=== PATIENT | female | born 1935 | race Caucasian/White ===

== ENCOUNTER 2019-04-26 01:47 | Emergency (ER) | payer OTHER ==
[2019-04-26 02:43] VITALS: BMI 31.6
--- NOTE | 2019-04-26 03:34 | PDOC ---
History of Present Illness - General Chief Complaint: Chest Pain Stated Complaint: BUG BITE, CHEST PAIN Time Seen by Provider: 04/26/19 04:00 - History of Present Illness Initial Comments: Ms. Carson is a 83F with PMH of TIA, hypothyroidism, and GERD, presenting today for a bug bite and subsequent swelling of her right hand and forearm. She reports that she was outside on the terrace when she was bitten by an unknown insect at 6pm. Reports that the swelling has been increasing proximally up her arm. Does not report difficulty breathing or throat swelling. Denies fever. She also reports pain in her left axilla and describes it as similar in nature to her chronic muscle pains. Past History - Past Medical History Allergies/Adverse Reactions: Allergies Allergy/AdvReac Type Severity Reaction Status Date / Time ranitidine HCl [From Zantac] Allergy Unverified 04/26/19 05:28 Home Medications: Ambulatory Orders Levothyroxine [Synthroid -] 100 mcg PO DAILY 05/27/15 Amoxicillin/Potassium Clav [Augmentin 875-125 Tablet] 1 each PO BID #14 tablet 04/26/19 COPD: No GI Disorders: Yes (GERD) HTN: Yes Hypercholesterolemia: Yes Thyroid Disease: Yes (HYPO) - Surgical History Abdominal Surgery: Yes (LAPAROSCOPY) Appendectomy: Yes Neurologic Surgery: Yes (NECK FUSION) Orthopedic Surgery: Yes (WRIST SURGERY) - Suicide/Smoking/Psychosocial Hx Smoking History: Never smoked Have you smoked in the past 12 months: No Number of Cigarettes Smoked Daily: 0 If you are a former smoker, when did you quit?: 30-40 YEARS AGO Information on smoking cessation initiated: No Hx Alcohol Use: No Drug/Substance Use Hx: No Substance Use Type: None Review of Systems - Review of Systems Able to Perform ROS?: Yes Is the patient limited Lebanese proficient: No Constitutional: Yes: See HPI. No: Chills, Diaphoresis, Fever HEENTM: Yes: See HPI. No: Throat Pain, Throat Swelling, Difficulty Swallowing, Mouth Swelling Respiratory: Yes: See HPI. No: Cough, Shortness of Breath, Stridor Cardiac (ROS): Yes: See HPI. No: Chest Pain, Edema, Palpitations ABD/GI: Yes: See HPI. No: Abdominal Distended, Constipated, Diarrhea, Nausea, Vomiting Musculoskeletal: Yes: See HPI, Muscle Pain. No: Joint Pain, Muscle Weakness Integumentary: Yes: See HPI, Erythema (right hand/forearm ). No: Bruising Neurological: Yes: See HPI. No: Headache, Numbness, Tingling, Weakness Endocrine: No: Symptoms Reported, Flushing Hematologic/Lymphatic: No: Symptoms Reported, Easy Bleeding *Physical Exam - Vital Signs Last Vital Signs Temp Pulse Resp BP Pulse Ox 98.0 F 87 18 130/83 97 04/26/19 02:42 04/26/19 02:42 04/26/19 02:42 04/26/19 02:42 04/26/19 02:42 - Physical Exam General Appearance: Yes: Appropriately Dressed. No: Apparent Distress HEENT: positive: EOMI, LAURENT. negative: Pharyngeal Erythema, Tonsillar Exudate, Tonsillar Erythema, Nasal Congestion, Rhinorrhea, Sinus Tenderness Neck: positive: Trachea midline, Supple. negative: Tender, Rigid, Decreased range of motion, Stridor Respiratory/Chest: positive: Normal Breath Sounds. negative: Chest Tender, Respiratory Distress, Accessory Muscle Use Cardiovascular: positive: Regular Rhythm, Regular Rate Vascular Pulses: Dorsalis-Pedis (R): 2+, Doralis-Pedis (L): 2+ Gastrointestinal/Abdominal: positive: Flat, Soft. negative: Tender, Organomegaly, Pulsatile Mass Musculoskeletal: positive: Normal Inspection. negative: CVA Tenderness Extremity: positive: Normal Capillary Refill, Normal Range of Motion, Swelling ( right hand), Erythema (dorsal right hand/forearm), Inflammation, Other Integumentary: positive: Erythema, Swelling. 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 No fever, no respiratory distress. She previously was concerned about left axillary pain, but reports that it is similar in nature to her chronic muscle pains. We will obtain CBC, CMP, establish IV access, and obtain XR of the right hand, wrist, and forearm. 04/26/19 05:24 XR of the right hand without air pockets or erosion of the bone. We will give 3g of Unasyn here in the ED. 04/26/19 0555 CBC does not show elevated white count. We will discharge home on Augmentin 875 mg BID for 5 days. Return in 2 days to the ER or PCP for wound check. *DC/Admit/Observation/Transfer Diagnosis at time of Disposition: Cellulitis Qualifiers: Site of cellulitis: extremity Site of cellulitis of extremity: upper extremity Laterality: right Qualified Code(s): L03.113 - Cellulitis of right upper limb - Discharge Dispostion Disposition: HOME Condition at time of disposition: Stable - Prescriptions Prescriptions: Amoxicillin/Potassium Clav [Augmentin 875-125 Tablet] 1 each PO BID #14 tablet - Referrals - Patient Instructions Printed Discharge Instructions: DI for Cellulitis -- Adult Additional Instructions: Your white blood cell count was within normal limits. Please take Augmentin 875 mg every 12 hours (twice per day) for 5 days. It is extremely important that you complete your course of antibiotics. Please see your primary care physician or return to the ER for a wound check in 2 days (on Sunday). - Post Discharge Activity
[2019-04-26 05:02] LABS: HEMOGLOBIN 14.9 GM/dL (10.7-15.3); MCH 30.2 pg (25.7-33.7); WHITE BLOOD COUNT 9.9 K/mm3 (4.0-10.0)
[2019-04-26] MEDS ORDERED: AMPICILLIN NA/SULBACTAM NA 3 GM in SODIUM CHLORIDE 100 ML IVPB ONE (05:13)
[2019-04-26 05:26] LABS: BASO % 0.1 % (0-2.0); EOS % 0.5 % (0-4.5); HEMATOCRIT 44.9 % (32.4-45.2); LYMPH % 11.1 % (8-40); MCHC 33.2 g/dl (32.0-36.0); MEAN CELL VOLUME 90.9 fl (80-96); MEAN PLT VOLUME 10.7 fl (7.5-11.1); MONO % 5.6 % (3.8-10.2); NEUT % 82.7 % (42.8-82.8); PLATELET COUNT 207 K/MM3 (134-434); RBC 4.94 M/mm3 (3.60-5.2); RDW 13.6 % (11.6-15.6)
[2019-04-26 05:33] LABS: ALBUMIN 3.7 g/dl (3.4-5.0); BILIRUBIN,TOTAL 0.4 mg/dL (0.2-1); BLOOD UREA NITROGEN 22.6 mg/dL (7-18); CALCIUM 9.4 mg/dL (8.5-10.1); CREATININE 0.9 mg/dL (0.55-1.3); POTASSIUM 4.2 mmol/L (3.5-5.1); TOT PROT 6.8 g/dl (6.4-8.2)
--- NOTE | 2019-04-26 05:39 | PDOC ---
Documentation entered by Ashtyn Wise SCRIBE, acting as scribe for Johnathan Sharma MD. Johnathan Sharma MD: This documentation has been prepared by the samiribeBillie Adrianna, SCRIBE, under my direction and personally reviewed by me in its entirety. I confirm that the documentation accurately reflects all work, treatment, procedures, and medical decision making performed by me. Attending Attestation - Resident Resident Name: Noel Pedraza - ED Attending Attestation I have performed the following: I have examined & evaluated the patient, The case was reviewed & discussed with the resident, I agree w/resident's findings & plan, Exceptions are as noted - HPI HPI: The patient is an 83 year old female, with a significant PMH of TIA (1995), Gerd (), and hypothyroidism (compliant) who presents to the ED for evaluation of right hand pain for a few hours. Patient notes she was stung by a hornet over the right third knuckle earlier today, and patient notes progressively worsening swelling and redness of the right hand. Allergies: Ranitidine Social history: Former smoker (1999). No alcohol. No illicit drugs. Surgical history: Appendectomy. PMD: Dr. Diaz 04/26/19 05:02 - Physicial Exam PE: 04/26/19 05:35 GENERAL: Awake, alert, and fully oriented, in no acute distress HEAD: No signs of trauma EYES: EOMI, sclera anicteric, conjunctiva clear ENT: Auricles normal inspection, hearing grossly normal, nares patent, Moist mucosa NECK: Normal ROM, supple, EXTREMITIES: RUE: 2+ radial pulse. Sensation and strength intact the median/radian/ulnar nerve distribution. Pt with diffuse erythema throughout the dorsal surface of right hand, but no fluctuance or induration. Pt has full flexion and extension of wrist and hand and digits. Erythema extends to distal right wrist. NEUROLOGICAL: Cranial nerves II through XII grossly intact. Normal speech, normal gait - Medical Decision Making 04/26/19 05:37 A portion of this note was documented by scribe services under my direction. I have reviewed the details of the note, within reason, and agree with the documentation with the following case summary and management plan written by me. Patient treated in the ED. Nursing notes are reviewed and incorporated into the medical decision-making. Vital signs reviewed. Peripheral IV access obtained by the nurse, laboratory studies are drawn and sent, reviewed and interpreted by myself. Vital Signs Temp Pulse Resp BP Pulse Ox 98.0 F 87 18 130/83 97 04/26/19 02:42 04/26/19 02:42 04/26/19 02:42 04/26/19 02:42 04/26/19 02:42 The patient is an 83-year-old female who is healthy presents with a sting by hornets that led to cellulitis of the right hand. The x-ray doctors no free air on my read. I suspect that this is from the insect sting. We'll obtain blood work including white blood cell count and blood cultures. If workup demonstrates no elevated white blood cell count, the patient to be discharged with Augmentin twice a day for one week. We'll initiate first dose of Unasyn here. We'll have patient return in 2-3 days for wound check. 04/26/19 05:53 CBC, BMP 04/26/19 04:45 04/26/19 04:45 CMP Sodium 144 mmol/L (136-145) 04/26/19 04:45 Potassium 4.2 mmol/L (3.5-5.1) 04/26/19 04:45 Chloride 111 mmol/L (98-107) H 04/26/19 04:45 Carbon Dioxide 26 mmol/L (21-32) 04/26/19 04:45 Anion Gap 8 MMOL/L (8-16) 04/26/19 04:45 BUN 22.6 mg/dL (7-18) H 04/26/19 04:45 Creatinine 0.9 mg/dL (0.55-1.3) 04/26/19 04:45 Est GFR (CKD-EPI)AfAm 69.50 04/26/19 04:45 Est GFR (CKD-EPI)NonAf 59.96 04/26/19 04:45 Random Glucose 103 mg/dL (74-106) 04/26/19 04:45 Calcium 9.4 mg/dL (8.5-10.1) 04/26/19 04:45 Total Bilirubin 0.4 mg/dL (0.2-1) 04/26/19 04:45 AST 13 U/L (15-37) L 04/26/19 04:45 ALT 14 U/L (13-61) 04/26/19 04:45 Alkaline Phosphatase 70 U/L (45-117) 04/26/19 04:45 Total Protein 6.8 g/dl (6.4-8.2) 04/26/19 04:45 Albumin 3.7 g/dl (3.4-5.0) 04/26/19 04:45 Pt has no creptitis. Unlikely to be nec fasciitis. Will have patient return on Sunday to her doctor or to the ER for wound check. (Pt absolutely denies chest pain here). Will d/c patient with strict return precuations.
[2019-04-26 06:17] VITALS: BP 142/82; PULSE 68; TEMP 98.2
--- NOTE | 2019-04-28 11:36 | EKG ---
Test Reason : Blood Pressure : / mmHG Vent. Rate : 087 BPM Atrial Rate : 087 BPM P-R Int : 174 ms QRS Dur : 094 ms QT Int : 362 ms P-R-T Axes : 041 -11 071 degrees QTc Int : 435 ms NORMAL SINUS RHYTHM NORMAL ECG WHEN COMPARED WITH ECG OF 07-SEP-2017 17:45, NONSPECIFIC T WAVE ABNORMALITY NOW EVIDENT IN LATERAL LEADS Confirmed by KATERINE BARRERA MD ([id number]) on 04/28/2019 11:35:34 AM Referred By: Confirmed By:KATERINE BARRERA MD
== END 2019-04-26 06:17 | disposition home or self-care (01) ==
LOC: JER 01:47
DX: S60.561A Insect bite (nonvenomous) of right hand, initial encounter (principal); L03.113 Cellulitis of right upper limb; W57.XXXA Bitten or stung by nonvenomous insect and other nonvenomous arthropods, initial encounter; Y93.89 Activity, other specified; Y92.89 Other specified places as the place of occurrence of the external cause; Y99.8 Other external cause status; I10 Essential (primary) hypertension; E78.00 Pure hypercholesterolemia, unspecified; E03.9 Hypothyroidism, unspecified; K21.9 Gastro-esophageal reflux disease without esophagitis
CPT/HCPCS: 36415; 73110-TC-RT-FY; 73130-TC-RT-FY; 80053; 85025; 93005; 93010; 96365; 99281-25

== ENCOUNTER 2021-02-15 15:43 | Inpatient (IN) | payer OTHER ==
[2021-03-18 10:48] VITALS: BMI 33.2
[2021-03-22] MEDS ORDERED: GENTAMICIN SO4 80 MG/2 ML VIAL ONE (07:19)
[2021-03-22] MEDS ORDERED: BUPIVACAINE HCL/PF 0.5% (5MG/ML) 10 ML VIAL ONE (07:19)
[2021-03-22] MEDS ORDERED: THROMBIN (BOVINE) 20,000 UNIT VIAL TP ONE (07:19)
[2021-03-22] MEDS ORDERED: VANCOMYCIN 1,000 MG VIAL (RESTRICTED TO ID ONLY) ONE ×2 (07:19→08:26)
[2021-03-22] MEDS ORDERED: LIDOCAINE 1%/EPI 1:100000 (50 ML MULTI DOSE VIAL) ONE (07:26)
[2021-03-22] MEDS ORDERED: fentaNYL CITRATE 250 MCG/5 ML VIAL ONE ×2 (08:02→09:02)
[2021-03-22] MEDS ORDERED: MIDAZOLAM HCL 2 MG/2 ML SINGLE DOSE VIAL ONE (08:02)
[2021-03-22] MEDS ORDERED: ROCURONIUM BROMIDE 50 MG/5 ML SYRINGE ONE ×2 (08:03→08:50)
[2021-03-22] MEDS ORDERED: PROPOFOL 20 ML ONE ×5 (08:03)
[2021-03-22] MEDS ORDERED: LIDOCAINE HCL/PF 2% SDV 5ML VIAL ONE (08:05)
[2021-03-22] MEDS ORDERED: ETOMIDATE 20 MG/10 ML AMPUL IVPUSH ONE (08:06)
[2021-03-22 08:20] LABS: INR 1.02 (0.83-1.09); PROTHROMBIN TIME (PATIENT) 12.5 SEC (9.7-13.0)
[2021-03-22] MEDS ORDERED: ceFAZolin 2 GRAM PREMIX BAG IVPB ONE (08:20)
[2021-03-22] MEDS ORDERED: VANCOMYCIN 1,000 MG VIAL (RESTRICTED TO ID ONLY) IVPB ONE (08:20)
[2021-03-22 08:26] LABS: ALBUMIN 3.5 g/dl (3.4-5.0); BLOOD UREA NITROGEN 18.6 mg/dL (7-18); CALCIUM 9.1 mg/dL (8.5-10.1); MAGNESIUM 2.3 mg/dL (1.8-2.4)
[2021-03-22] MEDS ORDERED: ceFAZolin SODIUM 1 GM VIAL ONE (08:26)
[2021-03-22 08:29] LABS: BASO % 0.7 % (0-2.0); EOS % 0.9 % (0-4.5); HEMATOCRIT 43.4 % (32.4-45.2); HEMOGLOBIN 14.5 GM/dL (10.7-15.3); LYMPH % 24.6 % (8-40); MCH 31.3 pg (25.7-33.7); MCHC 33.4 g/dl (32.0-36.0); MEAN CELL VOLUME 93.6 fl (80-96); MEAN PLT VOLUME 10.1 fl (7.5-11.1); NEUT % 67.8 % (42.8-82.8); PHOSPHOROUS 3.7 mg/dL (2.5-4.9); PLATELET COUNT 216 K/MM3 (134-434); RBC 4.63 M/mm3 (3.60-5.2); RDW 13.7 % (11.6-15.6); WHITE BLOOD COUNT 8.4 K/mm3 (4.0-10.0)
[2021-03-22 08:31] LABS: BILIRUBIN,TOTAL 0.6 mg/dL (0.2-1); TOT PROT 6.8 g/dl (6.4-8.2)
[2021-03-22] MEDS ORDERED: TRANEXAMIC ACID 1000 MG/10 ML VIAL ONE (08:43)
[2021-03-22] MEDS ORDERED: LIDOCAINE 1%/EPI 1:100000 (20 ML MULTI DOSE VIAL) IJ ONE (08:50)
[2021-03-22] MEDS ORDERED: THROMBIN (BOVINE) 5,000 UNIT VIAL TP ONE (08:58)
[2021-03-22] MEDS ORDERED: GENTAMICIN SO4 80 MG/2 ML VIAL IVPB ONE (09:00)
[2021-03-22] MEDS ORDERED: BACITRACIN 50,000 UNITS VIAL TP ONE (09:00)
[2021-03-22] MEDS ORDERED: HYDROGEN PEROXIDE 473 ML PO ONE (09:01)
[2021-03-22] MEDS ORDERED: ONDANSETRON 4 MG/2 ML VIAL ONE (09:02)
[2021-03-22] MEDS ORDERED: DEXAMETHASONE SOD PHOSPHATE 4 MG/1 ML VIAL ONE (09:02)
[2021-03-22] MEDS ORDERED: NEOSTIGMINE METHYLSULFATE 0.5 MG/1 ML - 10 ML MDV ONE (10:09)
[2021-03-22] MEDS ORDERED: GLYCOPYRROLATE 0.2 MG/1 ML VIAL ONE (10:10)
[2021-03-22] MEDS ORDERED: ONDANSETRON 4 MG/2 ML VIAL IVPUSH PRN ×2 (11:03→11:10)
[2021-03-22] MEDS ORDERED: oxyCODONE HCL 5 MG TABLET PO PRN (11:03)
[2021-03-22] MEDS ORDERED: ACETAMINOPHEN 1000 MG/100 ML VIAL (NON FORMULARY) IVPB ONE (11:11)
[2021-03-22] MEDS ORDERED: LACTATED RINGERS SOLUTION 1,000 ML IV SCH (11:15)
[2021-03-22] MEDS ORDERED: LORATADINE 10 MG TABLET PO PRN (11:15)
[2021-03-22] MEDS: LACTATED RINGERS SOLUTION 1,000 ML IV SCH (15:20)
[2021-03-22] MEDS: CEFAZOLIN 2 GM/D5W 2 GM/50 ML ML IVPB SCH ×2 (15:20→21:11)
[2021-03-22] MEDS ORDERED: PANTOPRAZOLE 20 MG TABLET PO ONE (21:04)
[2021-03-22] MEDS: oxyCODONE HCL 5 MG TABLET PO PRN (23:11)
[2021-03-23] MEDS: CEFAZOLIN 2 GM/D5W 2 GM/50 ML ML IVPB SCH (02:08)
[2021-03-23] MEDS: oxyCODONE HCL 5 MG TABLET PO PRN ×2 (04:00→21:05)
[2021-03-23] MEDS: LEVOTHYROXINE NA 100 MCG TABLET (FP) PO SCH (06:11)
[2021-03-23 08:28] LABS: BASO % 0.1 % (0-2.0); HEMATOCRIT 38.9 % (32.4-45.2); LYMPH % 10.4 % (8-40); MCHC 33.5 g/dl (32.0-36.0); MEAN CELL VOLUME 92.7 fl (80-96); MEAN PLT VOLUME 9.6 fl (7.5-11.1); MONO % 5.1 % (3.8-10.2); NEUT % 84.4 % (42.8-82.8); PLATELET COUNT 219 K/MM3 (134-434); RDW 13.5 % (11.6-15.6); WHITE BLOOD COUNT 16.3 K/mm3 (4.0-10.0)
[2021-03-23 08:53] LABS: ALBUMIN 3.3 g/dl (3.4-5.0); BLOOD UREA NITROGEN 11.9 mg/dL (7-18)
[2021-03-23 08:56] LABS: CREATININE 0.9 mg/dL (0.55-1.3)
[2021-03-23 08:58] LABS: BILIRUBIN,TOTAL 0.5 mg/dL (0.2-1); TOT PROT 6.2 g/dl (6.4-8.2)
[2021-03-23 09:50] LABS: EPI CELLS 14 /uL (0-25.1); HYALINE CASTS 0 /uL (0-3.1); PH,URINE 6.5 (5.0-8.0); URINE APPEARANCE CLEAR; URINE BACTERIA 82 /uL (0-1359); URINE BILIRUBIN NEGATIVE (NEGATIVE); URINE COLOR YELLOW; URINE GLUCOSE (UA) NEGATIVE (NEGATIVE); URINE KETONE NEGATIVE (NEGATIVE); URINE LEUK ESTERASE TRACE (NEGATIVE); URINE NITRITE NEGATIVE (NEGATIVE); URINE PROTEIN NEGATIVE (NEGATIVE); URINE RBC 36 /uL (0-23.9); URINE UROBILINOGEN 0.2 mg/dL (0.2-1.0); URINE WBC 12 /uL (0-25.8)
[2021-03-23] MEDS ORDERED: BENZOCAINE/MENTH/CETYLPYRD CL 1 EACH LOZENGE MM PRN (10:14)
[2021-03-23] MEDS ORDERED: ACETAMINOPHEN 1000 MG/100 ML VIAL (NON FORMULARY) IVPB ONE (10:15)
[2021-03-23] MEDS: LACTATED RINGERS SOLUTION 1,000 ML IV SCH (21:10)
[2021-03-24] MEDS: oxyCODONE HCL 5 MG TABLET PO PRN (02:40)
[2021-03-24] MEDS: LEVOTHYROXINE NA 100 MCG TABLET (FP) PO SCH (06:12)
[2021-03-24 08:23] LABS: HEMOGLOBIN 13.4 GM/dL (10.7-15.3); MCH 31.3 pg (25.7-33.7); MCHC 33.5 g/dl (32.0-36.0); MEAN CELL VOLUME 93.5 fl (80-96); MEAN PLT VOLUME 10.2 fl (7.5-11.1); PLATELET COUNT 204 K/MM3 (134-434); RBC 4.28 M/mm3 (3.60-5.2); RDW 13.4 % (11.6-15.6); WHITE BLOOD COUNT 13.9 K/mm3 (4.0-10.0)
[2021-03-24 08:57] LABS: CALCIUM 8.8 mg/dL (8.5-10.1)
[2021-03-24 08:58] LABS: BLOOD UREA NITROGEN 11.4 mg/dL (7-18)
[2021-03-24 09:01] LABS: CREATININE 0.9 mg/dL (0.55-1.3)
[2021-03-24] MEDS ORDERED: MAG HYDROX/AL HYDROX/SIMETH 30 ML UNIT-DOSE CUP PO PRN (09:07)
[2021-03-24] MEDS ORDERED: PT OWN MED DRAWER 7, Y5N ONE (09:50)
[2021-03-24 12:01] VITALS: BP 165/76; PULSE 54; TEMP 98.2
== END 2021-03-24 15:17 | disposition home or self-care (01) | DRG 472 ==
LOC: J2C 03-22 04:15 → J6S 03-22 14:58
PROVIDERS: ADMIT Neurological Surgery; ATTEND Internal Medicine
PROC: 0RP104Z Removal of Internal Fixation Device from Cervical Vertebral Joint, Open Approach (ICD-10-PCS; 2021-03-22)
PROC: 0PB30ZZ Excision of Cervical Vertebra, Open Approach (ICD-10-PCS; 2021-03-22)
PROC: 00NW0ZZ Release Cervical Spinal Cord, Open Approach (ICD-10-PCS; 2021-03-22)
PROC: B01BZZZ Fluoroscopy of Spinal Cord (ICD-10-PCS; 2021-03-22)
PROC: 4A1004G Monitoring of Central Nervous Electrical Activity, Intraoperative, Open Approach (ICD-10-PCS; 2021-03-22)
PROC: 0RG20A0 Fusion of 2 or more Cervical Vertebral Joints with Interbody Fusion Device, Anterior Approach, Anterior Column, Open Approach (ICD-10-PCS; principal; 2021-03-22 08:00)
PROC: 0RG2070 Fusion of 2 or more Cervical Vertebral Joints with Autologous Tissue Substitute, Anterior Approach, Anterior Column, Open Approach (ICD-10-PCS; 2021-03-22 08:00)
DX: M48.02 Spinal stenosis, cervical region (principal); M47.12 Other spondylosis with myelopathy, cervical region; M40.202 Unspecified kyphosis, cervical region; K21.9 Gastro-esophageal reflux disease without esophagitis; E03.9 Hypothyroidism, unspecified; E78.5 Hyperlipidemia, unspecified; I10 Essential (primary) hypertension; E66.01 Morbid (severe) obesity due to excess calories; Z68.33 Body mass index [BMI] 33.0-33.9, adult; D72.829 Elevated white blood cell count, unspecified
CPT/HCPCS: 36415; 72125-TC; 76000-TC-FY; 80048; 80053; 81003; 83735; 84100; 85025; 85027; 85610; 86850; 86900; 86901; 88108; 94010; 94760; 97116-GP; 97162-GP; J0131

== ENCOUNTER 2021-04-03 12:48 | Emergency (ER) | payer OTHER ==
[2021-04-03 12:54] VITALS: BMI 33.2
[2021-04-03] MEDS ORDERED: FLUTICASONE PROP 0.05% 16 GM NASAL SPRAY NS ONE (14:30)
[2021-04-03] MEDS ORDERED: DEXAMETHASONE SOD PHOSPHATE 10 MG/1 ML VIAL IVPUSH ONE (14:31)
[2021-04-03] MEDS ORDERED: SODIUM CHLORIDE 0.9% 500 ML INFUS.BAG IV ONE (14:31)
[2021-04-03] MEDS ORDERED: DEXAMETHASONE SOD PHOSPHATE 10 MG/1 ML VIAL ONE (15:24)
[2021-04-03 15:29] LABS: EOS % 0.4 % (0-4.5); HEMATOCRIT 43.5 % (32.4-45.2); HEMOGLOBIN 14.3 GM/dL (10.7-15.3); LYMPH % 19.2 % (8-40); MCH 30.5 pg (25.7-33.7); MCHC 32.9 g/dl (32.0-36.0); MEAN CELL VOLUME 92.7 fl (80-96); MEAN PLT VOLUME 9.1 fl (7.5-11.1); MONO % 5.3 % (3.8-10.2); NEUT % 74.1 % (42.8-82.8); PLATELET COUNT 290 K/MM3 (134-434); RBC 4.69 M/mm3 (3.60-5.2); RDW 13.3 % (11.6-15.6)
[2021-04-03 15:49] LABS: CALCIUM 10.1 mg/dL (8.5-10.1)
[2021-04-03 15:50] LABS: ALBUMIN 3.7 g/dl (3.4-5.0); BLOOD UREA NITROGEN 12.4 mg/dL (7-18)
[2021-04-03 15:53] LABS: CREATININE 0.8 mg/dL (0.55-1.3)
[2021-04-03 15:54] LABS: BILIRUBIN,TOTAL 0.4 mg/dL (0.2-1); TOT PROT 7.2 g/dl (6.4-8.2)
[2021-04-03] MEDS ORDERED: LORATADINE 10 MG TABLET PO ONE (16:50)
[2021-04-03 17:38] VITALS: BP 148/79; PULSE 74; TEMP 98.2
[2021-04-03] MEDS ORDERED: LORATADINE 10 MG TABLET ONE (20:44)
== END 2021-04-03 19:13 | disposition home or self-care (01) ==
LOC: JER 12:48
PROC: 3E033NZ Introduction of Analgesics, Hypnotics, Sedatives into Peripheral Vein, Percutaneous Approach (ICD-10-PCS; principal; 2021-04-03)
DX: R09.82 Postnasal drip (principal); J30.2 Other seasonal allergic rhinitis
CPT/HCPCS: 36415; 70491-TC; 80053; 85025; 99285-25; J1100; Q9967

== ENCOUNTER 2021-04-07 12:15 | Emergency (ER) | payer OTHER ==
[2021-04-07 12:28] VITALS: BP 155/81; PULSE 74; TEMP 98.3; BMI 33.2
[2021-04-07] MEDS ORDERED: PSEUDOEPHEDRINE HCL 30 MG TABLET PO STA (13:00)
[2021-04-07] MEDS ORDERED: guaiFENesin 600 MG TABLET.ER (FP) PO STA (13:04)
[2021-04-07] MEDS ORDERED: AZITHROMYCIN 250 MG TABLET PO ONE (13:32)
[2021-04-07] MEDS ORDERED: AZITHROMYCIN 250 MG TABLET ONE (13:47)
== END 2021-04-07 13:50 | disposition home or self-care (01) ==
LOC: FER 12:15
DX: R09.3 Abnormal sputum (principal)
CPT/HCPCS: 71046-TC-FY; 99284-25

== ENCOUNTER 2023-01-04 04:31 | Day surgery (SDC) | payer OTHER ==
[2023-01-03 10:09] VITALS: BMI 31.4
[2023-01-04 11:23] VITALS: TEMP 98
[2023-01-04 12:01] VITALS: BP 145/62; PULSE 57; RESP 20
== END 2023-01-04 12:10 | disposition home or self-care (01) ==
LOC: JASU-ENDO 04:31
PROVIDERS: ATTEND Internal Medicine Gastroenterology
PROC: 0DBL8ZX Excision of Transverse Colon, Via Natural or Artificial Opening Endoscopic, Diagnostic (ICD-10-PCS; 2023-01-04)
PROC: 0DBK8ZX Excision of Ascending Colon, Via Natural or Artificial Opening Endoscopic, Diagnostic (ICD-10-PCS; principal; 2023-01-04 11:00)
DX: Z12.11 Encounter for screening for malignant neoplasm of colon (principal); D12.2 Benign neoplasm of ascending colon; D12.3 Benign neoplasm of transverse colon; K57.30 Diverticulosis of large intestine without perforation or abscess without bleeding; R19.5 Other fecal abnormalities
CPT/HCPCS: 88305-TC

== ENCOUNTER 2023-06-04 05:17 | Emergency (ER) | payer OTHER ==
[2023-06-04 05:31] VITALS: RESP 18; TEMP 97.6; BMI 31.4
[2023-06-04] MEDS ORDERED: SODIUM CHLORIDE 1,000 ML IV SCH (05:45)
[2023-06-04] MEDS ORDERED: METOCLOPRAMIDE HCL INJECTION 10 MG/2 ML VIAL IVPUSH ONE (05:50)
[2023-06-04] MEDS ORDERED: LACTATED RINGERS SOLUTION 1000 ML INFUS.BAG IV ONE (05:50)
[2023-06-04] MEDS ORDERED: ACETAMINOPHEN 1000 MG/100 ML BAG IVPB ONE (05:50)
[2023-06-04] MEDS ORDERED: ACETAMINOPHEN INJECTION 100 ML IVPB ONE (05:57)
[2023-06-04] MEDS ORDERED: METOCLOPRAMIDE HCL INJECTION 10 MG/2 ML VIAL ONE (05:57)
[2023-06-04] MEDS ORDERED: KETOROLAC TROMETHAMINE 15 MG/ML VIAL IVPUSH ONE (07:47)
[2023-06-04 07:57] LABS: INR 1.46 (0.83-1.09); PROTHROMBIN TIME (PATIENT) 16.9 SEC (9.7-13.0)
[2023-06-04 07:59] LABS: ACTIVATED PTT 38.1 SECONDS (25.2-36.5); POTASSIUM 3.9 mmol/L (3.5-5.1)
[2023-06-04] MEDS ORDERED: KETOROLAC TROMETHAMINE 15 MG/ML VIAL ONE (07:59)
[2023-06-04 08:00] LABS: CALCIUM 8.4 mg/dL (8.5-10.1)
[2023-06-04 08:01] LABS: ALBUMIN 3.1 g/dl (3.4-5.0)
[2023-06-04 08:02] LABS: BASO % 0.5 % (0-2.0); EOS % 0.6 % (0-4.5); HEMATOCRIT 40.6 % (32.4-45.2); HEMOGLOBIN 13.2 GM/dL (10.7-15.3); LYMPH % 25.8 % (8-40); MCH 30.3 pg (25.7-33.7); MCHC 32.7 g/dl (32.0-36.0); MEAN CELL VOLUME 92.8 fl (80-96); NEUT % 64.1 % (42.8-82.8); PLATELET COUNT 213 10^3/uL (134-434); RBC 4.37 M/mm3 (3.60-5.2); RDW 14.3 % (11.6-15.6); WHITE BLOOD COUNT 6.5 K/mm3 (4.0-10.0)
[2023-06-04 08:03] LABS: BLOOD UREA NITROGEN 12.8 mg/dL (7-18)
[2023-06-04 08:04] LABS: CREATININE 0.9 mg/dL (0.55-1.3)
[2023-06-04 08:06] LABS: TOT PROT 5.9 g/dl (6.4-8.2)
[2023-06-04 08:07] LABS: BILIRUBIN,TOTAL 0.6 mg/dL (0.2-1)
[2023-06-04] MEDS ORDERED: MAGNESIUM SULF 50% (8.12 MEQ/2 ML-1 GM VIAL) IVPB ONE (08:44)
[2023-06-04] MEDS ORDERED: SODIUM CHLORIDE 0.9% 500 ML INFUS.BAG IV ONE (08:51)
[2023-06-04] MEDS ORDERED: MAGNESIUM SULFATE IN WATER 2 GM/50 ML IVPB IVPB ONE (08:51)
[2023-06-04 10:49] LABS: PH,URINE 6.5 (5.0-8.0); URINE APPEARANCE CLEAR; URINE BILIRUBIN NEGATIVE (NEGATIVE); URINE COLOR YELLOW; URINE GLUCOSE (UA) NEGATIVE (NEGATIVE); URINE KETONE NEGATIVE (NEGATIVE); URINE LEUK ESTERASE NEGATIVE (NEGATIVE); URINE NITRITE NEGATIVE (NEGATIVE); URINE PROTEIN NEGATIVE (NEGATIVE); URINE UROBILINOGEN 0.2 mg/dL (0.2-1.0)
[2023-06-04 12:41] VITALS: BP 145/70; PULSE 57
== END 2023-06-04 12:42 | disposition home or self-care (01) ==
LOC: JER 05:17
PROC: 3E033NZ Introduction of Analgesics, Hypnotics, Sedatives into Peripheral Vein, Percutaneous Approach (ICD-10-PCS; principal; 2023-06-04)
PROC: 3E033GC Introduction of Other Therapeutic Substance into Peripheral Vein, Percutaneous Approach (ICD-10-PCS; 2023-06-04)
PROC: 3E033GC Introduction of Other Therapeutic Substance into Peripheral Vein, Percutaneous Approach (ICD-10-PCS; 2023-06-04)
PROC: 3E033GC Introduction of Other Therapeutic Substance into Peripheral Vein, Percutaneous Approach (ICD-10-PCS; 2023-06-04)
DX: M54.2 Cervicalgia (principal); R51.9 Headache, unspecified
CPT/HCPCS: 36415; 70450-TC; 80053; 80061; 81003; 82550; 83036; 84484; 85025; 85610; 85730; 86850; 86900; 86901; 93005; 93010; 99285-25

== ENCOUNTER 2024-07-18 14:25 | Emergency (ER) | payer OTHER ==
[2024-07-18 14:45] VITALS: BP 165/94; PULSE 72; RESP 18; TEMP 97.7; BMI 30.4
[2024-07-18] MEDS ORDERED: LIDOCAINE 4% PATCH TP ONE (15:00)
[2024-07-18] MEDS ORDERED: ACETAMINOPHEN 325 MG TABLET (FP) ONE (15:00)
[2024-07-18] MEDS: ACETAMINOPHEN 325 MG TABLET (FP) PO ONE (15:12)
[2024-07-18] MEDS: LIDOCAINE 4% PATCH TP ONE (15:12)
[2024-07-18 15:29] LABS: BASO % 0.1 % (0-2.0); EOS % 0.7 % (0-4.5); HEMATOCRIT 41.1 % (32.4-45.2); HEMOGLOBIN 13.7 GM/dL (10.7-15.3); LYMPH % 27.7 % (8-40); MCH 30.7 pg (25.7-33.7); MCHC 33.3 g/dl (32.0-36.0); MEAN CELL VOLUME 92.3 fl (80-96); MEAN PLT VOLUME 9.3 fl (7.5-11.1); NEUT % 64.5 % (42.8-82.8); PLATELET COUNT 217 10^3/uL (134-434); RBC 4.45 M/mm3 (3.60-5.2); WHITE BLOOD COUNT 8.3 K/mm3 (4.0-10.0)
[2024-07-18 15:39] LABS: INR 1.26 (0.83-1.09); PROTHROMBIN TIME (PATIENT) 14.1 SEC (9.7-13.0)
[2024-07-18 15:42] LABS: ACTIVATED PTT 39.3 SECONDS (25.2-36.5)
[2024-07-18 15:58] LABS: POTASSIUM 4.5 mmol/L (3.5-5.1)
[2024-07-18 16:01] LABS: ALBUMIN 3.6 g/dl (3.4-5.0); BLOOD UREA NITROGEN 22.8 mg/dL (7-18); CALCIUM 9.1 mg/dL (8.5-10.1)
[2024-07-18 16:06] LABS: BILIRUBIN,TOTAL 0.6 mg/dL (0.2-1); TOT PROT 6.8 g/dl (6.4-8.2)
[2024-07-18] MEDS ORDERED: LIDOCAINE PATCH REMOVAL MC SCH (22:00)
== END 2024-07-18 18:36 | disposition left against medical advice (07) ==
LOC: JER 14:25
DX: R42 Dizziness and giddiness (principal); R06.02 Shortness of breath; V43.52XA Car driver injured in collision with other type car in traffic accident, initial encounter
CPT/HCPCS: 36415; 70450-TC; 71046-TC-FY; 72125-TC; 80053; 84484; 85025; 85610; 85730; 93005; 93010; 99285-25

== ENCOUNTER 2024-08-14 04:13 | Day surgery (SDC) | payer OTHER ==
[2024-08-11 17:10] VITALS: BMI 30.9
[2024-08-14] MEDS ORDERED: LIDOCAINE HCL/PF 1% SDV 5ML VIAL ONE (07:32)
[2024-08-14] MEDS ORDERED: BUPIVACAINE HCL/PF 0.5% (5MG/ML) 10 ML VIAL ONE (07:32)
[2024-08-14] MEDS ORDERED: ACETAMINOPHEN 500 MG TABLET (FP) PO PRN (08:58)
[2024-08-14 11:42] VITALS: RESP 18
[2024-08-14] MEDS: BUPIVACAINE HCL/PF 0.5% (5MG/ML) 10 ML VIAL IJ ONE ×2 (13:39)
[2024-08-14 14:28] VITALS: BP 137/75; PULSE 64; TEMP 97.2
== END 2024-08-14 14:20 | disposition home or self-care (01) ==
LOC: JASU-SURG 04:13
PROVIDERS: ATTEND Pain Medicine Pain Medicine
PROC: 3E0T3BZ Introduction of Anesthetic Agent into Peripheral Nerves and Plexi, Percutaneous Approach (ICD-10-PCS; principal; 2024-08-14 13:00)
DX: M47.812 Spondylosis without myelopathy or radiculopathy, cervical region (principal)
CPT/HCPCS: 76000-TC-FY

== ENCOUNTER 2025-01-01 06:54 | Day surgery (SDC) | payer OTHER ==
[2024-11-21 11:14] VITALS: BMI 30.9
[2025-01-01] MEDS ORDERED: LIDOCAINE HCL/PF 1% SDV 5ML VIAL ONE (07:27)
[2025-01-01] MEDS ORDERED: BUPIVACAINE HCL/PF 0.5% (5MG/ML) 10 ML VIAL ONE (07:27)
[2025-01-01 08:36] VITALS: TEMP 97
[2025-01-01] MEDS ORDERED: ACETAMINOPHEN 500 MG TABLET (FP) PO PRN (09:01)
[2025-01-01 10:22] VITALS: BP 184/77; PULSE 63; RESP 18
== END 2025-01-01 10:42 | disposition home or self-care (01) ==
LOC: JASU-SURG 06:54
PROVIDERS: ATTEND Pain Medicine Pain Medicine
PROC: 3E0T3BZ Introduction of Anesthetic Agent into Peripheral Nerves and Plexi, Percutaneous Approach (ICD-10-PCS; principal; 2025-01-01 10:03)
DX: M47.812 Spondylosis without myelopathy or radiculopathy, cervical region (principal)
CPT/HCPCS: 76000-TC-FY